=== PATIENT | female | born 1955 | race Caucasian/White ===

== ENCOUNTER 2017-05-24 01:06 | Inpatient (IN) | payer OTHER ==
[2017-05-24] VITALS (12 sets, daily range): BP systolic 117–133; BP diastolic 63–88; PULSE 87–156; RESP 18–21; TEMP 98.7; Ht 165.1 cm; Wt 81.8 kg
[~2017-05-24] VITALS: Ht 165.1 cm; Wt 81.8 kg
[~2017-05-24 01:06] MED LIST: HYDR-762 PO; IBUP-1542 PO; TRAM50TA2 PO
--- NOTE | 2017-05-24 01:52 | ERA ---
ER Documentation Chief Complaint Date/Time DATE: 05/24/17 TIME: 01:52 Chief Complaint fall yesterday, c/o right hip to lower leg, hears "clicking" when walking HPI The patient is a 61-year-old female, presenting to the ER because of right hip pain and right knee pain after she fell a day ago. She complains of a clicking noise when she fell. She denies syncope, near syncope, neck pain, chest pain, dyspnea, palpitation, diaphoresis, abdominal pain, vomiting. She smokes and drinks and denies illicit drug. She appear very tachypneic and tachycardic Past medical history: None Past medical history: Cervical cancer ROS All systems reviewed and are negative except as per history of present illness. Medications Home Meds Active Scripts Hydrocodone Bit-Acetaminophen* ([place]*) 10-325 Mg Tablet, 1 TAB PO Q6 Y for PAIN , #20 TAB Prov:THAIS JAIMES MD 09/18/15 Ibuprofen* (Motrin*) 600 Mg Tab, 600 MG PO Q6, #30 TAB Prov:THAIS JAIMES MD 09/18/15 Tramadol HCl (Tramadol HCl) 50 Mg Tablet, 50 MG PO Q4 Y for PAIN, #30 TAB Prov:THAIS JAIMES MD 09/18/15 Allergies Allergies: Coded Allergies: No Known Allergy (Unverified , 09/18/15) PMhx/Soc Hx Alcohol Use: No Hx Substance Use: No Hx Tobacco Use: No Physical Exam Vitals Vital Signs Date Time Temp Pulse Resp B/P Pulse Ox O2 Delivery O2 Flow Rate FiO2 05/24/17 04:59 103 26 104/86 100 Room Air 05/24/17 04:28 98.7 154 22 105/87 100 Room Air 05/24/17 03:51 155 22 106/81 100 Room Air 05/24/17 02:21 184 22 114/80 100 Room Air 05/24/17 01:19 99.1 131 22 139/68 100 Physical Exam Const: No acute distress. Very anxious Head: Atraumatic. Eyes: Normal Conjunctiva. ENT: Normal External Ears, Nose and Mouth. Neck: Full range of motion. No meningismus. Resp: Clear to auscultation bilaterally. Tachypneic Cardio: Regular tachycardic Abd: Soft, non distended, normal bowel sounds, non tender. Skin: No petechiae or rashes. Back: No midline or flank tenderness. Ext: No cyanosis, or edema. Neur: Awake and alert. No focal deficit Psych: Normal Mood and Affect. Result Diagram: 05/24/17 0210 05/24/17 0210 Results 24 hrs Laboratory Tests Test 05/24/17 02:10 White Blood Count 6.310^3/ul Red Blood Count 4.6110^6/ul Hemoglobin 13.2g/dl Hematocrit 40.3% Mean Corpuscular Volume 87.4fl Mean Corpuscular Hemoglobin 28.6pg Mean Corpuscular Hemoglobin Concent 32.8g/dl Red Cell Distribution Width 13.7% Platelet Count 02647^3/UL Mean Platelet Volume 9.6fl Neutrophils % 62.4% Lymphocytes % 28.0% Monocytes % 7.3% Eosinophils % 1.7% Basophils % 0.3% Nucleated Red Blood Cells % 0.0/100WBC Neutrophils # 3.910^3/ul Lymphocytes # 1.810^3/ul Monocytes # 0.510^3/ul Eosinophils # 0.110^3/ul Basophils # 0.010^3/ul Nucleated Red Blood Cells # 0.010^3/ul Prothrombin Time 12.8Sec Prothrombin Time Ratio 1.0 INR International Normalized Ratio 0.96 Activated Partial Thromboplast Time 29.1Sec Sodium Level 150mmol/L Potassium Level 3.7mmol/L Chloride Level 108mmol/L Carbon Dioxide Level 26mmol/L Anion Gap 20 Blood Urea Nitrogen 21mg/dl Creatinine 1.00mg/dl Glucose Level 156mg/dl Calcium Level 9.0mg/dl Magnesium Level 2.1mg/dl Total Bilirubin 0.3mg/dl Direct Bilirubin 0.00mg/dl Indirect Bilirubin 0.3mg/dl Aspartate Amino Transf (AST/SGOT) 23IU/L Alanine Aminotransferase (ALT/SGPT) 43IU/L Alkaline Phosphatase 87IU/L Troponin I < 0.012ng/ml Total Protein 7.5g/dl Albumin 4.4g/dl Globulin 3.10g/dl Albumin/Globulin Ratio 1.41 Thyroid Stimulating Hormone (TSH) 1.670MIU/L Urine Opiates Screen Negative Urine Barbiturates Negative Urine Amphetamines Screen POSITIVE Urine Benzodiazepines Screen Negative Urine Cocaine Screen Negative Urine Cannabinoids Negative Ethyl Alcohol Level < 10.0mg/dl Current Medications Medications (Trade) Dose Ordered Sig/Manisha Route PRN Reason Start Time Stop Time Status Last Admin Dose Admin Sodium Chloride (NS) 500 ml @ 500 mls/hr Q1H STAT IV 05/24/17 02:04 05/24/17 03:03 DC 05/24/17 02:24 Lorazepam 1 mg 1 mg ONCE ONCE IV 05/24/17 03:30 05/24/17 03:31 DC 05/24/17 03:27 Amiodarone HCl 100 ml @ 600 mls/hr ONCE ONCE IV 05/24/17 03:30 05/24/17 03:39 DC 05/24/17 03:50 Sodium Chloride (NS) 100 ml @ ud STK-MED ONCE .ROUTE 05/24/17 03:23 05/24/17 03:24 DC 05/24/17 03:44 Iohexol 150 ml 150 ml STK-MED ONCE .ROUTE 05/24/17 03:23 05/24/17 03:24 DC 05/24/17 03:44 Sodium Chloride 1,000 ml @ 1,000 mls/hr Q1H ONCE IV 05/24/17 04:30 05/24/17 05:29 DC 05/24/17 04:18 Amiodarone HCl/ Dextrose (Cordarone Iv/ D5W) 500 ml @ 0 mls/hr Q0M IV 05/24/17 04:30 05/25/17 04:29 Ondansetron HCl (Zofran Inj) 4 mg Q6H PRN IV NAUSEA AND/OR VOMITING 05/24/17 05:30 Albuterol/ Ipratropium (Duoneb) 3 ml Q2H RESP THERAPY PRN NEB SHORTNESS OF BREATH 05/24/17 05:30 Acetaminophen (Tylenol Liquid) 650 mg Q6H PRN PO PAIN LEVEL 1-3 OR FEVER 05/24/17 05:30 Morphine Sulfate (morphine) 2 mg Q4H PRN IV PAIN LEVEL 7-10 05/24/17 05:30 Enoxaparin Sodium (Lovenox) 40 mg DAILY SC 05/24/17 09:00 Acetaminophen/ Hydrocodone Bitart ([place] (10/325)) 1 tab Q6 PRN PO PAIN 05/24/17 05:30 Tramadol HCl 50 mg 50 mg Q4 PRN PO PAIN 05/24/17 05:30 Amiodarone HCl 900 mg/Dextrose 500 ml @ 0 mls/hr Q0M IV 05/24/17 05:30 05/25/17 05:29 Dextrose (D5W) 1,000 ml @ 100 mls/hr Q10H IV 05/24/17 05:30 05/24/17 23:00 Procedures/MDM [place] [address] Radiology Main Line: [phone] DIAGNOSTIC IMAGING REPORT Patient: HAYDER GALLEGOS : 1955 Age: 61 Sex: F MR #: [id number] DOS: 05/24/17203 Ordering MD: MARY SHORT MD Location: E/R Room/Bed: PROCEDURE: RIGHT KNEE - 3 VIEWS CLINICAL INDICATION: 61-year-old female with right knee pain following trauma. TECHNIQUE: AP, lateral and tunnel views of the right knee were obtained. The images reviewed on a PACS workstation. COMPARISON: None. FINDINGS: The bones appear intact, with no evidence of fracture, erosion, demineralization , or dislocation. The alignment of the femorotibial and patellofemoral joints appears normal. No joint space narrowing is seen. IMPRESSION: Unremarkable examination of the right knee. .Jono Poole MD, MD Date Time Electronically viewed and signed by .Jono Poole MD, on 05/24/2017 04:01 .M/ CC: MARY SHORT MD [place] [address] Radiology Main Line: [phone] DIAGNOSTIC IMAGING REPORT Patient: HAYDER GALLEGOS : 1955 Age: 61 Sex: F MR #: [id number] DOS: 05/24/17203 Ordering MD: MARY SHORT MD Location: E/R Room/Bed: PROCEDURE: RIGHT HIP - 2 VIEWS CLINICAL INDICATION: 61-year-old female with right hip pain. TECHNIQUE: AP and frog lateral views of the right hip were performed. The images reviewed on a PACS workstation. COMPARISON: CT right hip September 18, 2015. FINDINGS: There is evidence for marked deformity and flattening of the right femoral head. There is joint space narrowing and sclerosis. There is superior subluxation. There is no evidence for an acute fracture or francesco dislocation. The bone marrow mineralization is within normal limits. IMPRESSION: 1. No acute right hip fracture. 2. Right femoral head deformity with marked hip degenerative changes and superior subluxation similar in appearance to the patient's prior CT scan from September 18, 2015. .Jono Poole MD, MD Date Time Electronically viewed and signed by .Jono Poole MD, MD on 05/24/2017 04:00 .M/ CC: MARY SHORT MD [place] [address] Radiology Main Line: [phone] DIAGNOSTIC IMAGING REPORT Patient: HAYDER GALLEGOS : 1955 Age: 61 Sex: F MR #: [id number] DOS: 05/24/17 0204 Ordering MD: MARY SHORT MD Location: E/R Room/Bed: PROCEDURE: US Lower extremity Venous. CLINICAL INDICATION: Shortness of breath, evaluate for DVT TECHNIQUE: Multiple sonographic images of the bilateral lower extremity deep venous system was obtained utilizing grayscale, color-flow, compressive sonography and doppler imaging with augmentation. The images were reviewed on a PACS workstation. COMPARISON: None. FINDINGS: There is normal compressibility and flow within the bilateral common femoral, deep femoral, superficial femoral and popliteal veins. The deep veins the calf were incompletely visualized. IMPRESSION: No sonographic evidence for deep venous thrombosis in the bilateral lower extremities. Physician Uche Date Time Electronically viewed and signed by Jose Antonio Siddiqui Physician on 05/24/2017 02 :54 ML/ CC: MARY SHORT MD [place] [address] Radiology Main Line: [phone] DIAGNOSTIC IMAGING REPORT Patient: HAYDER GALLEGOS : 1955 Age: 61 Sex: F MR #: [id number] DOS: 05/24/17 0204 Ordering MD: MARY SHORT MD Location: E/R Room/Bed: PROCEDURE: CTA CHEST WITH CONTRAST CLINICAL INDICATION: 61-year-old female with shortness of breath. TECHNIQUE: The study was performed utilizing a [employer] VCT 64-slice CT scanner. Direct axial sections were obtained from the thoracic inlet through the chest to the upper abdomen with a bolus injection of 100 cc of Omnipaque- 300 nonionic contrast material. Sagittal, coronal and maximal intensity projections re-formations were obtained. One or more of the following dose reduction techniques were utilized: automated exposure control, adjustment of the mA and/or kV according to patient's size or use of iterative reconstruction technique. The images were reviewed on a PACS workstation. CTD/vol = 44.0 mGy; Total Exam DLP = 605.6 mGy-cm. COMPARISON: None. FINDINGS: The aorta is without aneurysmal dilatation or dissection. There are small lymph nodes seen within the mediastinum which are not pathologic by size criteria. The central pulmonary arteries are without evidence for filling defect to suggest pulmonary embolus or thrombus. There is incomplete opacification of the distal pulmonary arterial branches limiting the evaluation. There is minimal bilateral posterior dependent subsegmental atelectasis. There is a linear focus of subsegmental atelectasis versus scarring within the superior segment of the right lower lobe.. No abnormal soft tissue masses or nodular densities are visualized. It is for a pneumothorax. Degenerative changes are seen within the spine. Scans through the upper abdomen reveals that the upper liver is unremarkable. The adrenal glands have a normal appearance. The upper kidneys are functional and are without evidence for obstruction. IMPRESSION: 1. No CTA evidence for thoracic aortic aneurysm/dissection or central pulmonary embolus. Note that there is incomplete opacification of the distal pulmonary arterial branches limiting the evaluation. 2. Linear peripheral subsegmental atelectasis versus scarring superior segment right lower lobe. 3. Minimal bilateral posterior dependent subsegmental atelectasis. 4. Degenerative changes within the spine. .Jono Poole MD, MD Date Time Electronically viewed and signed by .Jono Poole MD, on 05/24/2017 04:37 .M/ CC: MARY SHORT MD [place] [address] Radiology Main Line: [phone] DIAGNOSTIC IMAGING REPORT Patient: HAYDER GALLEGOS : 1955 Age: 61 Sex: F MR #: [id number] DOS: 05/24/17 0204 Ordering MD: MARY SHORT MD Location: E/R Room/Bed: PROCEDURE: CHEST - 1 VIEW CLINICAL INDICATION: 61-year-old female with shortness of breath. TECHNIQUE: A single frontal AP upright portable view of the chest was performed. The images were reviewed on a PACS workstation. COMPARISON: None. FINDINGS: The cardiomediastinal silhouette is within normal limits. There is a shallow inspiration. There is mild elevation of the left hemidiaphragm. There is minimal bibasilar subsegmental atelectasis. There is no evidence for an infiltrate. There is no evidence for congestive heart failure. There is no evidence for pneumothorax. The osseous structures are intact. IMPRESSION: Shallow inspiration with mild elevation of the left hemidiaphragm and minimal bibasilar subsegmental atelectasis. .Jono Poole MD, Date Time Electronically viewed and signed by .Jono Poole MD, MD on 05/24/2017 03:57 .M/ CC: MARY SHORT MD EKG: At 3:17 AM at read by emergency physician Rate/Rhythm: Y QRS tachycardia at 178 beats/min QRS, ST, T-waves: No ST elevation, no T inversion, nonspecific intraventricular block Impression: Abnormal EKG EKG: At 4:15 AM read by emergency physician Rate/Rhythm: Sinus tachycardia 153 beats/min QRS, ST, T-waves: No ST elevation, inferior, anterolateral ST and T abnormality Impression: Abnormal EKG EK:13 AM after amiodarone 150 mg IV read by emergency physician Rate/Rhythm: Normal Sinus Rhythm 96 beats/min QRS, ST, T-waves: No ST elevation, no T inversion Impression: Normal EKG MEDICAL MAKING DECISION: The patient is a 61-year-old female, presenting with acute wide QRS complex tachycardia, acute amphetamine abuse, acute right hip pain, acute right knee pain, acute hypernatremia. She was treated with 2 L normal saline, amiodarone 150 mg IV over 10 minutes and Ativan 1 mg IV with good response. She converted to normal sinus rhythm after the aforementioned treatment The differential diagnoses considered include but are not limited to tachyarrhythmia, amphetamine induced tachyarrhythmia, thyroid disease, ACS, PE, hip fracture/contusion/sprain, knee fracture/contusion/sprain Critical Care: Time: 35 minutes excluding all billable procedures. Treatments/Evaluations: Close monitoring and treatment of unstable vital signs, cardiorespiratory, and neurologic status, while maintaining tight balance of fluid, respiratory, and cardiac interventions. Departure Diagnosis: Primary Impression: Wide QRS ventricular tachycardia Additional Impressions: Amphetamine abuse Hypernatremia Right hip pain Right knee pain Condition: Stable Comments I discussed the findings with the patient. I discussed the patient with the on- call hospitalist Dr. Walker who was made aware of the lab, the treatment, the patient condition. The patient is admitted to telemetry at 530 am MARY SHORT MD May 24, 2017 01:52
[2017-05-24] MEDS ORDERED: SOD CHLORIDE 0.9% 500 ML IV STA (02:04)
[2017-05-24 02:51] LABS: BASOPHILS % 0.3 % (0.0-2.0); EOSINOPHILS # 0.1 10^3/ul (0.0-0.5); EOSINOPHILS % 1.7 % (0.0-7.0); HEMATOCRIT 40.3 % (37.0-47.0); HEMOGLOBIN 13.2 g/dl (12.0-16.0); LYMPHOCYTES # 1.8 10^3/ul (0.8-2.9); MEAN CORPUSCULAR HEMOGLOBIN 28.6 pg (29.0-33.0); MEAN CORPUSCULAR HGB CONC 32.8 g/dl (32.0-37.0); MEAN CORPUSCULAR VOLUME 87.4 fl (82.0-101.0); MEAN PLATELET VOLUME 9.6 fl (7.4-10.4); MONOCYTE # 0.5 10^3/ul (0.3-0.9); MONOCYTES % 7.3 % (0.0-11.0); NEUTROPHIL # 3.9 10^3/ul (1.6-7.5); NEUTROPHILS % 62.4 % (39.0-77.0); PLATELET COUNT 183 10^3/UL (140-415); RED BLOOD COUNT 4.61 10^6/ul (4.20-5.40); RED CELL DISTRIBUTION WIDTH 13.7 % (11.5-14.5); WHITE BLOOD COUNT 6.3 10^3/ul (4.8-10.8)
--- NOTE | 2017-05-24 02:54 | RADRPT ---
PROCEDURE: US Lower extremity Venous. CLINICAL INDICATION: Shortness of breath, evaluate for DVT TECHNIQUE: Multiple sonographic images of the bilateral lower extremity deep venous system was obt ained utilizing grayscale, color-flow, compressive sonography and doppler imaging with augmentation. The images were reviewed on a PACS workstation. COMPARISON: None. FINDINGS: There is normal compressibility and flow within the bilateral common femoral, deep femoral, superfic ial femoral and popliteal veins. The deep veins the calf were incompletely visualized. IMPRESSION: No sonographic evidence for deep venous thrombosis in the bilateral lower extremities. Physician Uche Date Time Electronically viewed and signed by Physician Uche on 05/24/2017 02:54 ML/
[2017-05-24 03:10] LABS: INR 0.96; PROTIME 12.8 Sec (12.2-14.2)
[2017-05-24 03:11] LABS: PARTIAL THROMBOPLASTIN TIME 29.1 Sec (25.0-35.0)
[2017-05-24 03:12] LABS: ALANINE AMINOTRANSFERASE 43 IU/L (13-69); ALBUMIN 4.4 g/dl (3.3-4.9); ALBUMIN/GLOBULIN RATIO 1.41; ALKALINE PHOSPHATASE 87 IU/L (42-121); ANION GAP 20 (8-16); ASPARTATE AMINO TRANSFERASE 23 IU/L (15-46); BILIRUBIN,INDIRECT 0.3 mg/dl (0-1.1); BILIRUBIN,TOTAL 0.3 mg/dl (0.2-1.3); BLOOD UREA NITROGEN 21 mg/dl (7-20); CARBON DIOXIDE 26 mmol/L (21-31); CHLORIDE 108 mmol/L (97-110); GLUCOSE 156 mg/dl (70-220); POTASSIUM 3.7 mmol/L (3.5-5.1); SODIUM 150 mmol/L (135-144); TOTAL PROTEIN 7.5 g/dl (6.1-8.1)
[2017-05-24 03:13] LABS: BARBITURATES Negative (NEGATIVE); BENZODIAZEPINES Negative (NEGATIVE); CANNABINOIDS Negative (NEGATIVE); COCAINE Negative (NEGATIVE); ETHANOL < 10.0 mg/dl; OPIATES Negative (NEGATIVE)
[2017-05-24] MEDS ORDERED: SOD CHLORIDE 0.9% 100 ML ONE (03:23)
[2017-05-24] MEDS ORDERED: IOHEXOL 300MG/ML 150 ML BTL ONE (03:23)
[2017-05-24] MEDS ORDERED: LORAZEPAM 2 MG INJ IV ONE (03:30)
[2017-05-24] MEDS ORDERED: AMIODARONE 150MG/D5W BOLUS 100 ML IV ONE (03:30)
[2017-05-24 03:39] LABS: TROPONIN-I < 0.012 ng/ml (0.00-0.12)
--- NOTE | 2017-05-24 03:58 | RADRPT ---
PROCEDURE: CHEST - 1 VIEW CLINICAL INDICATION: 61-year-old female with shortness of breath. TECHNIQUE: A single frontal AP upright portable view of the chest was performed. The images were reviewed on a PACS workstation. COMPARISON: None. FINDINGS: The cardiomediastinal silhouette is within normal limits. There is a shallow inspiration. There is mild elevation of the left hemidiaphragm. There is minimal bibasilar subsegmental atelectasis. The re is no evidence for an infiltrate. There is no evidence for congestive heart failure. There is no evidence for pneumothorax. The osseous structures are intact. IMPRESSION: Shallow inspiration with mild elevation of the left hemidiaphragm and minimal bibasilar subsegmental atelectasis. .Jono Poole MD, MD Date Time Electronically viewed and signed by .Jono Poole MD, MD on 05/24/2017 03:57 .M/
--- NOTE | 2017-05-24 04:00 | RADRPT ---
PROCEDURE: RIGHT HIP - 2 VIEWS CLINICAL INDICATION: 61-year-old female with right hip pain. TECHNIQUE: AP and frog lateral views of the right hip were performed. The images reviewed on a PAC S workstation. COMPARISON: CT right hip September 18, 2015. FINDINGS: There is evidence for marked deformity and flattening of the right femoral head. There is joint spa ce narrowing and sclerosis. There is superior subluxation. There is no evidence for an acute fract ure or francesco dislocation. The bone marrow mineralization is within normal limits. IMPRESSION: 1. No acute right hip fracture. 2. Right femoral head deformity with marked hip degenerative changes and superior subluxation simil ar in appearance to the patient's prior CT scan from September 18, 2015. .Jono Poole MD, Date Time Electronically viewed and signed by .Jono Poole MD, on 05/24/2017 04:00 .M/
--- NOTE | 2017-05-24 04:01 | RADRPT ---
PROCEDURE: RIGHT KNEE - 3 VIEWS CLINICAL INDICATION: 61-year-old female with right knee pain following trauma. TECHNIQUE: AP, lateral and tunnel views of the right knee were obtained. The images reviewed on a PACS workstation. COMPARISON: None. FINDINGS: The bones appear intact, with no evidence of fracture, erosion, demineralization, or dislocation. Th e alignment of the femorotibial and patellofemoral joints appears normal. No joint space narrowing i s seen. IMPRESSION: Unremarkable examination of the right knee. .Jono Poole MD, MD Date Time Electronically viewed and signed by .Jono Poole MD, MD on 05/24/2017 04:01 .Leidy/
[2017-05-24] MEDS ORDERED: SOD CHLORIDE 0.9% 1,000 ML IV ONE (04:30)
[2017-05-24] MEDS ORDERED: AMIODARONE 900 MG in DEXTROSE 5% 482 ML IV SCH ×2 (04:30→05:30)
--- NOTE | 2017-05-24 04:37 | RADRPT ---
PROCEDURE: CTA CHEST WITH CONTRAST CLINICAL INDICATION: 61-year-old female with shortness of breath. TECHNIQUE: The study was performed utilizing a [employer] VCT 64-slice CT scanner. Direct axi al sections were obtained from the thoracic inlet through the chest to the upper abdomen with a bolu s injection of 100 cc of Omnipaque-300 nonionic contrast material. Sagittal, coronal and maximal int ensity projections re-formations were obtained. One or more of the following dose reduction techniqu es were utilized: automated exposure control, adjustment of the mA and/or kV according to patient's size or use of iterative reconstruction technique. The images were reviewed on a PACS workstation. CTD/vol = 44.0 mGy; Total Exam DLP = 605.6 mGy-cm. COMPARISON: None. FINDINGS: The aorta is without aneurysmal dilatation or dissection. There are small lymph nodes seen within th e mediastinum which are not pathologic by size criteria. The central pulmonary arteries are without evidence for filling defect to suggest pulmonary embolus or thrombus. There is incomplete opacificat ion of the distal pulmonary arterial branches limiting the evaluation. There is minimal bilateral p osterior dependent subsegmental atelectasis. There is a linear focus of subsegmental atelectasis elisabeth fadia scarring within the superior segment of the right lower lobe.. No abnormal soft tissue masses or nodular densities are visualized. It is for a pneumothorax. Degenerative changes are seen within t he spine. Scans through the upper abdomen reveals that the upper liver is unremarkable. The adrenal glands hav e a normal appearance. The upper kidneys are functional and are without evidence for obstruction. IMPRESSION: 1. No CTA evidence for thoracic aortic aneurysm/dissection or central pulmonary embolus. Note that there is incomplete opacification of the distal pulmonary arterial branches limiting the evaluation . 2. Linear peripheral subsegmental atelectasis versus scarring superior segment right lower lobe. 3. Minimal bilateral posterior dependent subsegmental atelectasis. 4. Degenerative changes within the spine. .Jono Poole MD, MD Date Time Electronically viewed and signed by .Jono Poole MD, MD on 05/24/2017 04:37 .M/
[2017-05-24] MEDS ORDERED: ALBUTEROL/IPRATROPIUM (NEB) 3 ML AMP NEB PRN (05:30)
[2017-05-24] MEDS ORDERED: ONDANSETRON 4 MG INJ IV PRN (05:30)
[2017-05-24] MEDS ORDERED: traMADol 50 MG TAB PO PRN (05:30)
[2017-05-24] MEDS ORDERED: morphine 4 MG/ML VIAL IV PRN (05:30)
[2017-05-24] MEDS ORDERED: ACETAMINOPHEN 650MG/20.3ML CUP PO PRN (05:30)
[2017-05-24] MEDS: DEXTROSE 5% 1,000 ML IV SCH ×2 (05:51→15:42)
--- NOTE | 2017-05-24 08:53 | HP ---
Date/Time of Note Date/Time of Note DATE: 05/24/17 TIME: 08:39 Assessment/Plan Lines/Catheters IV Catheter Type (from Nrs): Peripheral IV Assessment/Plan Assessment/Plan 1. Wide QRS tachycardia: Currently in sinus after administration of amiodarone -will start oral beta-albert -will check TSH and thyroid profile. We will send additional troponin -We will place a cardiology consult. 2. Right hip pain: Status post fall -Patient has known advanced degenerative disease of the right hip. In fact, she is scheduled for surgery sometime this months. -e will provide pain medication as needed 3. Hypernatremia: We will start D5W -Monitor closely and correct as needed HPI/ROS Admit Date/Time Admit Date/Time Hx of Present Illness This is a 61-year-old female with a history of hypertension, advanced degenerative disease of the right hip, amphetamine use who presented to the ER complaining of right hip pain. She had a ground-level fall yesterday and insisted her right hip pain has been progressively getting worse. She is actually scheduled for right hip surgery sometime this month. When she presented to the ER, reportedly she was anxious and is speaking rapidly. She was tachycardic and actually found to have a wide QRS complex tachycardia. Heart rate was as high as in the 180s. She was started on amiodarone and has since converted to sinus. U tox is positive for amphetamine. Sodium was 150 otherwise the rest of the CBC and CMP are within acceptable range. First troponin is negative. He denies chest pain. X-ray of the right hip shows right femoral head deformity with marked hip degenerative changes and superior subluxation similar in appearance to the patient's prior CT scan from September 18, 2015. . PMH/Family/Social Social History Smoking Status: Current every day smoker Exam/Review of Systems Vital Signs Vitals Vital Signs Date Time Temp Pulse Resp B/P Pulse Ox O2 Delivery O2 Flow Rate FiO2 05/24/17 04:59 103 26 104/86 100 Room Air 05/24/17 04:28 98.7 Labs Result Diagram: 05/24/17 0210 05/24/17 0210 Medications Medications Current Medications Amiodarone HCl/ Dextrose (Cordarone Iv/ D5W) 500 ml @ 0 mls/hr Q0M IV ; Start at 04:30; Stop 05/25/17 at 04:29 Ondansetron HCl (Zofran Inj) 4 mg Q6H PRN IV NAUSEA AND/OR VOMITING; Start 05/24 at 05:30 Acetaminophen (Tylenol Liquid) 650 mg Q6H PRN PO PAIN LEVEL 1-3 OR FEVER; Start 05/24/17 at 05:30 Morphine Sulfate (morphine) 2 mg Q4H PRN IV PAIN LEVEL 7-10; Start 05/24/17 at 05:30 Enoxaparin Sodium (Lovenox) 40 mg DAILY SC ; Start 05/24/17 at 09:00 Acetaminophen/ Hydrocodone Bitart ([place] ()) 1 tab Q6 PRN PO PAIN; Start 05/24/17 at 05:30 Tramadol HCl 50 mg 50 mg Q4 PRN PO PAIN; Start 05/24/17 at 05:30 Dextrose (D5W) 1,000 ml @ 100 mls/hr Q10H IV Last administered on 05/24/17t 05: 51; Admin Dose 100 MLS/HR; Start 05/24/17 at 05:30; Stop 05/24/17 at 23:00 MARILYN CÁRDENAS MD May 24, 2017 08:50
[2017-05-24] MEDS ORDERED: METOPROLOL 25 MG TAB PO SCH (09:00)
[2017-05-24] MEDS ORDERED: ENOXAPARIN 40 MG/0.4 ML SYG SC SCH (09:00)
[2017-05-24 10:00] LABS: T3 UPTAKE 38.3 % (23.5-40.5)
[2017-05-24] MEDS ORDERED: METOPROLOL 5 MG INJ IV ONE (10:00)
[2017-05-24] MEDS ORDERED: METOPROLOL 5 MG INJ ONE (10:02)
[2017-05-24 10:14] LABS: THYROID STIMULATING HORMONE 2.13 MIU/L (0.465-4.680)
[2017-05-24] MEDS: HYDROCODONE/APAP (10/325) TAB PO PRN ×2 (11:05→18:14)
[2017-05-24] MEDS ORDERED: CEPASTAT LOZENGE MT PRN (16:00)
--- NOTE | 2017-05-24 16:07 | RADRPT ---
Echocardiogram Report Patient Name: HAYDER GALLEGOS Gender: Female Date: 1955 Study Date: 24-May-2017 Director Business Integration: Mirta Nelson RDCS Location: [facility] Ref. Physician: MARILYN CÁRDENAS Quality: Adequate Procedures: Transthoracic echocardiogram with complete 2D, M-Mode, and doppler examination. Indications: Tachycardia. 2D/M Mode Doppler Measurement Value Normal Ranges Measurement Value Normal Ranges LVIDd 2D 3.9 3.5 - 5.6 cm AV Peak Enoch 1.2 m/sec LVIDs 2D 2.6 2.1 - 4.1 cm AV Peak PG 6.0 mmHg LVPWd 2D 1.0 0.6 - 1.1 cm LVOT Peak Enoch 1.0 m/sec IVSd 2D 0.8 0.6 - 1.1 cm LVOT Peak PG 3.8 mmHg AoR Diam 2D 2.9 2.0 - 3.7 cm MV E Peak Enoch 0.8 m/sec EDV 2D 64.2 cm3 MV A Peak Enoch 0.6 m/sec ESV 2D 18.4 cm3 MV E/A 1.3 LA Dimen 2D 2.5 2.3 - 4.0 cm MV Decel Time 118 msec MV Decel [place] 7 MV E/A 1.3 TR Peak Enoch 2.1 m/sec TR Peak PG 17.3 mmHg RVSP 20.0 mmHg Findings Left Ventricle: Normal left ventricular systolic function. Normal left ventricular cavity size. Normal left ventricular wall thickness. Ejection fraction is visually estimated at 5560 %. Tissue Doppler/Mitral Doppler indices are within normal limits. Right Ventricle: Normal right ventricular size. Normal right ventricular systolic function. Left Atrium: The left atrium is normal in size. Right Atrium: The right atrium is normal in size. Mitral Valve: Normal appearance and function of the mitral valve with trace physiologic regurgitation. Aortic Valve: Normal appearance of the aortic valve. No significant aortic stenosis or insufficiency. Tricuspid Valve: Normal appearance of the tricuspid valve. Estimated peak PA systolic pressure 20 mmHg. There is mild tricuspid regurgitation. Pulmonic Valve: Pulmonic valve not well visualized. Pericardium: Normal pericardium with no significant pericardial effusion. Aorta: Normal aortic root. IVC: Normal size and normal respiratory collapse consistent with normal right atrial pressure. Conclusions 1.The left ventricle is normal in size and systolic function. 2.Estimated left ventricular ejection fraction of 55-60%. Electronically Signed By: Jackson Thompson 24-May-2017 16:07:25 -0700 Patient Name: HAYDER GALLEGOS Study Date: 24-May-2017 [id number]
--- NOTE | 2017-05-24 17:12 | CONS ---
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 Hypertension Right hip degenerative joint disease Amphetamine abuse - counselled on cessation Tobacco abuse - counselled on smoking cessation Recommendations: -echocardiogram showed normal LVEF 55-60% -discontinue amiodarone -discontinue metoprolol (theoretical risk of unopposed alpha effects with amphetamine use) -start diltiazem 120mg daily -no further cardiac work up at this time Problems: Consultation Date/Type/Reason Admit Date/Time Type of Consultation: Cardiology Reason for Consultation tachycardia Hx of Present Illness The patient is a 61 year-old female who presents with right hip pain. She reports having a mechanical fall several days ago due to loss of balance. She denies lightheadedness or loss of consciousness. X-ray images shows advanced degenerative disease of the right hip, which was previously known, and no acute fractures. The patient reports being scheduled for hip surgery in [place] later this month. She was subsequently noted to be tachycardic to the 170s. EKG showed a supraventricular tachycardia. Urine toxicology was positive for amphetamines. 14 point review of systems negative other than per HPI. Past Medical History Hypertension Right hip degenerative joint disease Past Surgical History Past Surgical Hx: no surgical history Family History Significant Family History: cancer (mother - breast, father - cancer unknown type) Social History Alcohol Use: occasionally Smoking Status: Current every day smoker Drug Use: other (methamphetamine) Exam/Review of Systems Vital Signs Vitals Vital Signs Date Time Temp Pulse Resp B/P Pulse Ox O2 Delivery O2 Flow Rate FiO2 05/24/17 16:28 88 05/24/17 11:06 18 121/88 98 Room Air 05/24/17 09:27 98.8 Exam Constitutional: alert, well developed Psych: nl mood/affect, no complaints Head: atraumatic, normocephalic Eyes: nl conjunctiva, nl lids ENMT: nl external ears & nose, nl nasal mucosa & septum Neck: non-tender, supple, No jvd Respiratory: clear to auscultation, normal air movement Cardiovascular: regular rate and rhythm, No murmurs/extra sounds Gastrointestinal: non-tender, soft Musculoskeletal: nl extremities to inspection Extremities: No clubbing, No cyanosis, No edema Neurological: nl mental status, nl speech Skin: nl turgor Results Result Diagram: 05/24/17 0210 05/24/17 0210 Results 24 hrs Laboratory Tests Test 05/24/17 02:10 05/24/17 08:39 05/24/17 12:10 White Blood Count 6.3 Red Blood Count 4.61 Hemoglobin 13.2 Hematocrit 40.3 Mean Corpuscular Volume 87.4 Mean Corpuscular Hemoglobin 28.6 L Mean Corpuscular Hemoglobin Concent 32.8 Red Cell Distribution Width 13.7 Platelet Count 183 Mean Platelet Volume 9.6 Neutrophils % 62.4 Lymphocytes % 28.0 Monocytes % 7.3 Eosinophils % 1.7 Basophils % 0.3 Nucleated Red Blood Cells % 0.0 Neutrophils # 3.9 Lymphocytes # 1.8 Monocytes # 0.5 Eosinophils # 0.1 Basophils # 0.0 Nucleated Red Blood Cells # 0.0 Prothrombin Time 12.8 Prothrombin Time Ratio 1.0 INR International Normalized Ratio 0.96 Activated Partial Thromboplast Time 29.1 Sodium Level 150 H Potassium Level 3.7 Chloride Level 108 Carbon Dioxide Level 26 Anion Gap 20 H Blood Urea Nitrogen 21 H Creatinine 1.00 Glucose Level 156 Calcium Level 9.0 Magnesium Level 2.1 Total Bilirubin 0.3 Direct Bilirubin 0.00 Indirect Bilirubin 0.3 Aspartate Amino Transf (AST/SGOT) 23 Alanine Aminotransferase (ALT/SGPT) 43 Alkaline Phosphatase 87 Troponin I < 0.012 0.013 < 0.012 Total Protein 7.5 Albumin 4.4 Globulin 3.10 Albumin/Globulin Ratio 1.41 Thyroid Stimulating Hormone (TSH) 1.670 2.130 Urine Opiates Screen Negative Urine Barbiturates Negative Urine Amphetamines Screen POSITIVE Urine Benzodiazepines Screen Negative Urine Cocaine Screen Negative Urine Cannabinoids Negative Ethyl Alcohol Level < 10.0 Free Thyroxine Index 2.72 Thyroxine (T4) 7.1 Triiodothyronine (T3) Uptake 38.3 Medications Medications Current Medications Amiodarone HCl/ Dextrose (Cordarone Iv/ D5W) 500 ml @ 0 mls/hr Q0M IV ; Start at 04:30; Stop 05/25/17 at 04:29 Ondansetron HCl (Zofran Inj) 4 mg Q6H PRN IV NAUSEA AND/OR VOMITING; Start 05/24 at 05:30 Acetaminophen (Tylenol Liquid) 650 mg Q6H PRN PO PAIN LEVEL 1-3 OR FEVER; Start 05/24/17 at 05:30 Morphine Sulfate (morphine) 2 mg Q4H PRN IV PAIN LEVEL 7-10; Start 05/24/17 at 05:30 Enoxaparin Sodium (Lovenox) 40 mg DAILY SC Last administered on 05/24/17 09:35 ; Admin Dose 40 MG; Start 05/24/17 at 09:00 Acetaminophen/ Hydrocodone Bitart ([place] (10)) 1 tab Q6 PRN PO PAIN Last administered on 05/24/17 11:05; Admin Dose 1 TAB; Start 05/24/17 at 05:30 Tramadol HCl 50 mg 50 mg Q4 PRN PO PAIN; Start 05/24/17 at 05:30 Dextrose (D5W) 1,000 ml @ 100 mls/hr Q10H IV Last administered on 05/24/17 15: 42; Admin Dose 100 MLS/HR; Start 05/24/17 at 05:30; Stop 05/24/17 at 23:00 Metoprolol Tartrate (Lopressor) 12.5 mg BID PO Last administered on 05/24/17 09 :36; Admin Dose 12.5 MG; Start 05/24/17 at 09:00 Phenol (Cepastat Lozenge) 1 lozenge Q1H PRN MT sore throat; Start 05/24/17 at 16 :00 SHAUN HAYES MD May 24, 2017 17:12
--- NOTE | 2017-05-24 17:17 | PN ---
Date/Time of Note Date/Time of Note DATE: 05/24/17 TIME: 17:15 Assessment/Plan VTE Prophylaxis VTE Prophylaxis Intervention: SCD's Lines/Catheters IV Catheter Type (from Nrsg): Peripheral IV Assessment/Plan Chief Complaint/Hosp Course Assessment and plan 1. Wide QRS tachycardia. 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 Seen with EF with preserved ejection fraction. Continue on Cardizem. Monitor on telemetry. 2. History of right hip pain. Continue with analgesics. Pain management physician to follow. 3. Hypernatremia. Continue on D5W. Follow-up on electrolyte in the morning. Disposition and plan: Monitor on telemetry. Monitor trend. Follow-up on electrolyte levels. Discharge within the next 24 hours if medically stable Discussed plan of care with Dr. Prather Problems: Subjective 24 Hr Interval Summary Free Text/Dictation no s/s of distress. 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, nl mental status, nl speech Results Result Diagram: 05/24/17 0210 05/24/17 0210 Results 24 hrs Laboratory Tests Test 05/24/17 02:10 05/24/17 08:39 05/24/17 12:10 White Blood Count 6.3 Red Blood Count 4.61 Hemoglobin 13.2 Hematocrit 40.3 Mean Corpuscular Volume 87.4 Mean Corpuscular Hemoglobin 28.6 L Mean Corpuscular Hemoglobin Concent 32.8 Red Cell Distribution Width 13.7 Platelet Count 183 Mean Platelet Volume 9.6 Neutrophils % 62.4 Lymphocytes % 28.0 Monocytes % 7.3 Eosinophils % 1.7 Basophils % 0.3 Nucleated Red Blood Cells % 0.0 Neutrophils # 3.9 Lymphocytes # 1.8 Monocytes # 0.5 Eosinophils # 0.1 Basophils # 0.0 Nucleated Red Blood Cells # 0.0 Prothrombin Time 12.8 Prothrombin Time Ratio 1.0 INR International Normalized Ratio 0.96 Activated Partial Thromboplast Time 29.1 Sodium Level 150 H Potassium Level 3.7 Chloride Level 108 Carbon Dioxide Level 26 Anion Gap 20 H Blood Urea Nitrogen 21 H Creatinine 1.00 Glucose Level 156 Calcium Level 9.0 Magnesium Level 2.1 Total Bilirubin 0.3 Direct Bilirubin 0.00 Indirect Bilirubin 0.3 Aspartate Amino Transf (AST/SGOT) 23 Alanine Aminotransferase (ALT/SGPT) 43 Alkaline Phosphatase 87 Troponin I < 0.012 0.013 < 0.012 Total Protein 7.5 Albumin 4.4 Globulin 3.10 Albumin/Globulin Ratio 1.41 Thyroid Stimulating Hormone (TSH) 1.670 2.130 Urine Opiates Screen Negative Urine Barbiturates Negative Urine Amphetamines Screen POSITIVE Urine Benzodiazepines Screen Negative Urine Cocaine Screen Negative Urine Cannabinoids Negative Ethyl Alcohol Level < 10.0 Free Thyroxine Index 2.72 Thyroxine (T4) 7.1 Triiodothyronine (T3) Uptake 38.3 Medications Medications Current Medications Ondansetron HCl (Zofran Inj) 4 mg Q6H PRN IV NAUSEA AND/OR VOMITING; Start 05/24 at 05:30 Acetaminophen (Tylenol Liquid) 650 mg Q6H PRN PO PAIN LEVEL 1-3 OR FEVER; Start 05/24/17 at 05:30 Morphine Sulfate (morphine) 2 mg Q4H PRN IV PAIN LEVEL 7-10; Start 05/24/17 at 05:30 Enoxaparin Sodium (Lovenox) 40 mg DAILY SC Last administered on 05/24/17 09:35 ; Admin Dose 40 MG; Start 05/24/17 at 09:00 Acetaminophen/ Hydrocodone Bitart ([place] (10/325)) 1 tab Q6 PRN PO PAIN Last administered on 05/24/17 11:05; Admin Dose 1 TAB; Start 05/24/17 at 05:30 Tramadol HCl 50 mg 50 mg Q4 PRN PO PAIN; Start 05/24/17 at 05:30 Dextrose (D5W) 1,000 ml @ 100 mls/hr Q10H IV Last administered on 05/24/17 15: 42; Admin Dose 100 MLS/HR; Start 05/24/17 at 05:30; Stop 05/24/17 at 23:00 Phenol (Cepastat Lozenge) 1 lozenge Q1H PRN MT sore throat; Start 05/24/17 at 16 :00 Diltiazem HCl (Cardizem Cd) 120 mg DAILY PO ; Start 05/24/17 at 17:30; Status UNV AFIA STOREY May 24, 2017 17:17
[2017-05-24] MEDS ORDERED: DILTIAZEM (CD) 120 MG CAP PO SCH (18:00)
[2017-05-25 00:24] VITALS: BP 129/63; RESP 20
[2017-05-25 00:53] VITALS: PULSE 81
[2017-05-25 04:00] VITALS: BP 116/59; RESP 20
[2017-05-25 04:26] VITALS: PULSE 68
--- NOTE | 2017-05-25 07:41 | CONS ---
Date/Time of Note Date/Time of Note DATE: 05/25/17 TIME: 07:39 Assessment/Plan Assessment/Plan Additional Assessment/Plan I have reviewed patient's medical record and attempted to interview and examine her. When I walked in the room patient was agitated and anxious, she states she had a bad night and she wanted to sign out AGAINST MEDICAL ADVICE, I asked her once again and she reaffirmed she wants to sign out AGAINST MEDICAL ADVICE. "I hate this place", now get out. Consultation Date/Type/Reason Admit Date/Time Psychological: nl mood/affect Past Surgical History Past Surgical Hx: no surgical history Social History Alcohol Use: occasionally Smoking Status: Current every day smoker Drug Use: other (methamphetamine) Exam/Review of Systems Vital Signs Vitals Vital Signs Date Time Temp Pulse Resp B/P Pulse Ox O2 Delivery O2 Flow Rate FiO2 05/25/17 04:26 68 05/25/17 04:00 97.9 20 116/59 97 05/24/17 18:17 Room Air Intake and Output 05/24/17 05/24/17 05/25/17 15:00 23:00 07:00 Intake Total 100 ml Balance 100 ml Results Result Diagram: 05/24/17 0210 05/24/17 0210 Results 24 hrs Laboratory Tests Test 05/24/17 08:39 05/24/17 12:10 Troponin I 0.013 < 0.012 Thyroid Stimulating Hormone (TSH) 2.130 Free Thyroxine Index 2.72 Thyroxine (T4) 7.1 Triiodothyronine (T3) Uptake 38.3 Medications Medications Current Medications Ondansetron HCl (Zofran Inj) 4 mg Q6H PRN IV NAUSEA AND/OR VOMITING; Start 05/24 at 05:30 Acetaminophen (Tylenol Liquid) 650 mg Q6H PRN PO PAIN LEVEL 1-3 OR FEVER; Start 05/24/17 at 05:30 Morphine Sulfate (morphine) 2 mg Q4H PRN IV PAIN LEVEL 7-10; Start 05/24/17 at 05:30 Enoxaparin Sodium (Lovenox) 40 mg DAILY SC Last administered on 05/24/17t 09:35 ; Admin Dose 40 MG; Start 05/24/17 at 09:00 Acetaminophen/ Hydrocodone Bitart ([place] (10/325)) 1 tab Q6 PRN PO PAIN Last administered on 05/24/17t 18:14; Admin Dose 1 TAB; Start 05/24/17 at 05:30 Tramadol HCl (Ultram) 50 mg Q4 PRN PO PAIN; Start 05/24/17 at 05:30 Phenol (Cepastat Lozenge) 1 lozenge Q1H PRN MT sore throat; Start 05/24/17 at 16 :00 Diltiazem HCl (Cardizem Cd) 120 mg DAILY PO ; Start 05/24/17 at 18:00 BETTY SCHMIDT May 25, 2017 07:41
[2017-05-25 08:03] LABS: BASOPHILS % 0.4 % (0.0-2.0); EOSINOPHILS # 0.1 10^3/ul (0.0-0.5); EOSINOPHILS % 2.3 % (0.0-7.0); HEMATOCRIT 38.3 % (37.0-47.0); HEMOGLOBIN 12.4 g/dl (12.0-16.0); LYMPHOCYTES # 1.2 10^3/ul (0.8-2.9); LYMPHOCYTES % 22.3 % (15.0-51.0); MEAN CORPUSCULAR HEMOGLOBIN 27.8 pg (29.0-33.0); MEAN CORPUSCULAR HGB CONC 32.4 g/dl (32.0-37.0); MEAN CORPUSCULAR VOLUME 85.9 fl (82.0-101.0); MEAN PLATELET VOLUME 9.5 fl (7.4-10.4); MONOCYTE # 0.4 10^3/ul (0.3-0.9); NEUTROPHIL # 3.6 10^3/ul (1.6-7.5); NEUTROPHILS % 67.4 % (39.0-77.0); PLATELET COUNT 157 10^3/UL (140-415); RED BLOOD COUNT 4.46 10^6/ul (4.20-5.40); RED CELL DISTRIBUTION WIDTH 13.2 % (11.5-14.5); WHITE BLOOD COUNT 5.3 10^3/ul (4.8-10.8)
[2017-05-25 08:20] VITALS: BP 130/70; RESP 18
[2017-05-25 08:21] LABS: CALCIUM 8.3 mg/dl (8.4-10.2); CREATININE 0.71 mg/dl (0.44-1.00); POTASSIUM 4.1 mmol/L (3.5-5.1)
== END 2017-05-25 08:02 | disposition left against medical advice (07) | DRG 309 ==
LOC: E/R 01:06 → MS3 05:15 → MS4 17:15
PROVIDERS: ADMIT Internal Medicine; ATTEND Internal Medicine
DX: I47.2 Ventricular tachycardia (principal); E87.0 Hyperosmolality and hypernatremia; M25.551 Pain in right hip; M25.561 Pain in right knee; F15.10 Other stimulant abuse, uncomplicated; F17.210 Nicotine dependence, cigarettes, uncomplicated; I47.1 Supraventricular tachycardia
CPT/HCPCS: 36415; 71010; 71275; 73510; 73562; 80048; 80053; 80306; 80307; 83735; 84436; 84443; 84479; 84484; 85025; 85610; 85730; 93005; 93306; 93970; 96374; 96375; J0282; J1650; J2060; J7030; J7040; J7060; J7070; Q9967